=== PATIENT | female | born 1985 | race Caucasian/White ===

== ENCOUNTER → 2018-02-26 | Outpatient (CLI) | payer OTHER ==
[~2018-02-26] MED LIST: AEROECLIPSE II1 EACH MC; ALBU90OI INH; ALBU90OI6 INH; BENADRYL25 MG PO; CEPH500 PO; DIPH50 PO; Duoneb 2.5-0.5 M3 ML INH; HYDACE5 PO; IBUP800 PO; NAPR500 PO; OXYACE5T PO; PENVK500 PO; PROM25 PO; Prednisone20 MG PO; Xopenex Hfa15 GM PO; Zofran Odt4 MG SL
[2018-03-02 00:11] LABS: CHLAMYDIA TRACHOMATIS, NAA Negative (Negative); NEISSERIA GONORRHOEAE, NAA Negative (Negative)
== END ==
LOC: LAB 14:45 → LAB SHORT 14:45
PROVIDERS: Registered Nurse Community Health
DX: Z20.2 Contact with and (suspected) exposure to infections with a predominantly sexual mode of transmission (principal)
CPT/HCPCS: 87491; 87591